=== PATIENT | female | born 1940 | race African-American/Black ===

== ENCOUNTER 2020-11-27 12:59 | Emergency (ER) | payer OTHER ==
[~2020-11-27] VITALS: Ht 167.6 cm; Wt 64.0 kg
[2020-11-27 13:44] LABS: BASOPHILS % 0.6 % (0.0-2.0); EOSINOPHILS % 0.5 % (0.0-5.0); HEMATOCRIT. 44.9 % (36.0-48.0); HEMOGLOBIN. 14.3 g/dL (12.0-16.0); LYMPHOCYTES % 28.8 % (20.0-50.0); MEAN CORPUSCULAR VOLUME 72.2 fL (81.0-99.0); MONOCYTES % 8.9 % (2.0-8.0); NEUTROPHILS % 61.2 % (40.0-76.0); PLATELET 258 x1000/uL (130-400); RED BLOOD CELL COUNT 6.22 mill/uL (4.2-5.4); RED CELL DISTRIBUTION WIDTH 15.3 % (11.6-14.6)
[2020-11-27 13:46] LABS: CHLORIDE 102 mEq/L (98-107)
[2020-11-27] MEDS ORDERED: LABETALOL 5MG/ML SYR 20 MG/4 ML SYRINGE IV NR (14:45)
[2020-11-27] MEDS ORDERED: ASPIRIN 325MG EC TABLET PO NR (14:45)
[2020-11-27 17:32] VITALS: BP 157/92
== END 2020-11-27 17:50 | disposition short-term general hospital (02) ==
LOC: ER 13:06 → CANBEDREQ 18:26
DX: R20.0 Anesthesia of skin (principal); R47.89 Other speech disturbances; I10 Essential (primary) hypertension; E78.00 Pure hypercholesterolemia, unspecified; Z88.6 Allergy status to analgesic agent; Z88.0 Allergy status to penicillin
CPT/HCPCS: 36415; 70450; 71045; 80053; 83880; 84484; 85025; 93005; 96374; 99285; J3490